=== PATIENT | male | born 2000 | race Two or more races ===

== ENCOUNTER 2019-03-20 18:46 | Emergency (ER) | payer OTHER ==
--- NOTE | 2019-03-20 20:07 | ER Document Report ---
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 He reports he was diagnosed in [place] when he was home on leave. They placed him on colchicine and ibuprofen. When he returned to [place] he quit taking ibuprofen. His medical told him to take naproxen. He is not taking colchicine anymore. He reports he had some chest pain this morning he also reports he has some abdominal pain that comes and goes denies fever vomiting diarrhea. He was worried that maybe he developed an ulcer. Denies black stools. I have greeted and performed a rapid initial assessment of this patient. A comprehensive ED assessment and evaluation of the patient, analysis of test results and completion of the medical decision making process will be conducted by additional ED providers. - Related Data Allergies/Adverse Reactions: No Known Allergies Allergy (Unverified 03/20/19 20:00) Physical Exam - Vital signs Vitals: Temp Pulse Resp BP Pulse Ox 98.2 F 63 16 120/80 100 03/20/19 19:22 03/20/19 19:22 03/20/19 19:22 03/20/19 19:22 03/20/19 19:22 Course - Vital Signs Vital signs: Temp Pulse Resp BP Pulse Ox 98.2 F 63 16 120/80 100 03/20/19 19:22 03/20/19 19:22 03/20/19 19:22 03/20/19 19:22 03/20/19 19:22
--- NOTE | 2019-03-20 20:36 | RADIOLOGY REPORT (SQ) ---
EXAM DESCRIPTION: XR CHEST 2 VIEWS COMPLETED DATE/TME: 03/20/2019 20:05 CLINICAL HISTORY: 18 years, Male, cp hx pericarditis COMPARISON: None. NUMBER OF VIEWS: Two TECHNIQUE: Frontal and lateral radiograph of the chest were acquired LIMITATIONS: None. FINDINGS: Cardiac and mediastinal contours are normal. Lungs are clear. No pleural effusion or pneumothorax. IMPRESSION: No acute disease. copyright 2010 [employer]- All Rights Reserved
[2019-03-20 21:12] LABS: ABSOLUTE BASOPHILS # (AUTO) 0.1 10^3/uL (0.0-0.2); ABSOLUTE EOSINOPHILS # (AUTO) 0.1 10^3/uL (0.0-0.6); ABSOLUTE LYMPHOCYTES (AUTO) 2.9 10^3/uL (0.5-4.7); ABSOLUTE MONOCYTES (AUTO) 0.7 10^3/uL (0.1-1.4); ABSOLUTE NEUT (AUTO) 3.5 10^3/uL (1.7-8.2); BASOPHILS % (AUTO) 0.9 % (0-2); EOSINOPHILS % (AUTO) 1.7 % (0-6); HEMOGLOBIN 14.9 g/dL (13.5-17.0); LYMPHOCYTES % (AUTO) 39.8 % (13-45); MEAN CORPUSCULAR HEMOGLOBIN 27.4 pg (27.0-33.4); MEAN CORPUSCULAR HGB CONC 33.8 g/dL (32.0-36.0); MEAN CORPUSCULAR VOLUME 81 fl (80-97); MONOCYTES % (AUTO) 9.6 % (3-13); PLATELET COUNT 277 10^3/uL (150-450); RED BLOOD COUNT 5.42 10^6/uL (4.35-5.55); RED CELL DISTRIBUTION WIDTH 12.4 % (11.5-14.0); TOTAL CELLS COUNTED % (AUTO) 100 %; WHITE BLOOD COUNT 7.3 10^3/uL (4.0-10.5)
[2019-03-20 21:22] LABS: APPEARANCE,URINE CLEAR; BILIRUBIN,URINE NEGATIVE (NEGATIVE); COLOR,URINE YELLOW; GLUCOSE, URINE NEGATIVE (NEGATIVE); KETONES,URINE 20 mg/dL (NEGATIVE); LEUKOCYTE ESTERASE,URINE NEGATIVE (NEGATIVE); NITRITE,URINE NEGATIVE (NEGATIVE); PROTEIN,URINE 30 mg/dL (NEGATIVE); URINE SPECIFIC GRAVITY 1.034
[2019-03-20 21:31] LABS: ALBUMIN 4.7 g/dL (3.7-5.6); ALKALINE PHOSPHATASE 79 U/L (65-260); ANION GAP 11 (5-19); ASPARTATE AMINO TRANSFERASE 132 U/L (10-45); BILIRUBIN,DIRECT 0.2 mg/dL (0.0-0.4); BILIRUBIN,TOTAL 0.7 mg/dL (0.2-1.3); BLOOD UREA NITROGEN 26 mg/dL (7-20); CALCIUM 9.8 mg/dL (8.4-10.2); CARBON DIOXIDE 28 mmol/L (22-30); CHLORIDE 100 mmol/L (98-107); GLUCOSE 94 mg/dL (75-110); POTASSIUM 4.4 mmol/L (3.6-5.0); TOTAL PROTEIN 8.3 g/dL (6.3-8.2)
--- NOTE | 2019-03-20 23:30 | EKG REPORT ---
SEVERITY:- OTHERWISE NORMAL ECG - SINUS ARRHYTHMIA, RATE 53-75 : Confirmed by: Judy Galvez MD 20-Mar-2019 23:29:59
[2019-03-21] MEDS ORDERED: SUCRALFATE 1 GM TABLET PO ONE (00:29)
--- NOTE | 2019-03-21 00:38 | ER Document Report ---
ED GI/ - General Chief Complaint: Abdominal Pain Stated Complaint: ABDOMINAL PAIN, HARD TO BREATHE Time Seen by Provider: 03/20/19 19:59 Mode of Arrival: Ambulatory Information source: Patient Notes: 18-year-old male presented to ED for complaint of epigastric abdominal pain. He states he was diagnosed with pericarditis in February. He states he was diagnosed while in [place] go home on leave. He states that for a month colchicine and ibuprofen and when he returned to [place] he could take any of ibuprofen and placed him on naproxen. He states he does not take the colchicine anymore due to the nausea and vomiting and diarrhea. He states he has been having some abdominal pain in the upper abdomen with no nausea vomiting diarrhea or fever. He is worried that he might be developing an ulcer from the medication. He states he has not had any black stools. He is alert oriented respirations regular nonlabored speaking in full sentences. He states he has not been taking any kind of medication for his stomach while taking the anti- inflammatories and colchicine. TRAVEL OUTSIDE OF THE [place] IN LAST 30 DAYS: No - HPI Patient complains to provider of: Abdominal pain Onset: Last week Timing/Duration: Intermittent Quality of pain: Burning Severity at maximum: Mild Severity in ED: None Pain Level: Denies Associated symptoms: Other - Epigastric pain Exacerbated by: Other - Naproxen Relieved by: Denies Similar symptoms previously: Yes Recently seen / treated by doctor: Yes - Related Data Allergies/Adverse Reactions: No Known Allergies Allergy (Unverified 03/20/19 20:00) Home Medications: naproxen Past Medical History - General Information source: Patient - Social History Smoking Status: Never Smoker Chew tobacco use (# tins/day): No Frequency of alcohol use: Occasional Drug Abuse: None, Other - He states he was using marijuana before he came into the in January not since then. Occupation: Active duty Lives with: Alone Family History: Reviewed & Not Pertinent Patient has suicidal ideation: No Patient has homicidal ideation: No - Past Medical History Cardiac Medical History: Reports: Other - Pericarditis Pulmonary Medical History: Reports: None EENT Medical History: Reports: None Neurological Medical History: Reports: None Endocrine Medical History: Reports: None Renal/ Medical History: Reports: None Malignancy Medical History: Reports None GI Medical History: Reports: None Musculoskeletal Medical History: Reports None Skin Medical History: Reports None Psychiatric Medical History: Reports: None Traumatic Medical History: Reports: None Infectious Medical History: Reports: None Surgical Hx: Negative Past Surgical History: Reports: None - Immunizations Immunizations up to date: Yes Hx Diphtheria, Pertussis, Tetanus Vaccination: Yes Review of Systems - Review of Systems Constitutional: No symptoms reported EENT: No symptoms reported Cardiovascular: No symptoms reported Respiratory: No symptoms reported Gastrointestinal: Abdominal pain - Epigastric pain Genitourinary: No symptoms reported Male Genitourinary: No symptoms reported Musculoskeletal: No symptoms reported Skin: No symptoms reported Hematologic/Lymphatic: No symptoms reported Neurological/Psychological: No symptoms reported -: Yes All other systems reviewed and negative Physical Exam - Vital signs Vitals: Temp Pulse Resp BP Pulse Ox 98.2 F 63 16 120/80 100 03/20/19 19:22 03/20/19 19:22 03/20/19 19:22 03/20/19 19:22 03/20/19 19:22 Interpretation: Normal - General General appearance: Appears well, Alert - HEENT Head: Normocephalic, Atraumatic Eyes: Normal Pupils: PERRL - Respiratory Respiratory status: No respiratory distress Chest status: Nontender Breath sounds: Normal Chest palpation: Normal - Cardiovascular Rhythm: Regular Heart sounds: Normal auscultation Murmur: No - Abdominal Inspection: Normal Distension: No distension Bowel sounds: Normal Tenderness: Tender - Minimal tenderness epigastric Organomegaly: No organomegaly - Back Back: Normal, Nontender - Extremities General upper extremity: Normal inspection, Nontender, Normal color, Normal ROM, Normal temperature General lower extremity: Normal inspection, Nontender, Normal color, Normal ROM, Normal temperature, Normal weight bearing. No: Barbara's sign - Neurological Neuro grossly intact: Yes Cognition: Normal Orientation: AAOx4 [place] Coma Scale Eye Opening: Spontaneous Kashif Coma Scale Verbal: Oriented [place] Coma Scale Motor: Obeys Commands Kashif Coma Scale Total: 15 Speech: Normal Motor strength normal: LUE, RUE, LLE, RLE Sensory: Normal - Psychological Associated symptoms: Normal affect, Normal mood - Skin Skin Temperature: Warm Skin Moisture: Dry Skin Color: Normal Course - Re-evaluation Re-evalutation: 03/21/19 03:07 Discussed chest x-ray labs and EKG with Dr. Everett and with patient. Drug screen was completed per Dr. Everett's suggestion. It was negative. Patient was treated with Carafate in the emergency room and discharged home with prescription for Pepcid and instructions to follow-up with his provider as he is active duty . Patient does have an echocardiogram scheduled next Sunday for his history of pericarditis. Patient was able to verbalize understanding and agreement with treatment plan patient was discharged home. - Vital Signs Vital signs: Temp Pulse Resp BP Pulse Ox 98.1 F 66 16 127/75 H 100 03/21/19 01:38 03/21/19 01:38 03/21/19 01:38 03/21/19 01:38 03/21/19 01:38 - Laboratory Result Diagrams: 03/20/19 21:02 03/20/19 21:02 Laboratory results interpreted by me: 03/20/19 03/20/19 21:02 21:02 BUN 26 H AST 132 H Total Protein 8.3 H Urine Protein 30 H Urine Ketones 20 H Urine Urobilinogen 2.0 H Urine Ascorbic Acid 40 H - Diagnostic Test Radiology reviewed: Image reviewed, Reports reviewed Discharge - Discharge Clinical Impression: Epigastric abdominal pain Condition: Stable Disposition: HOME, SELF-CARE Additional Instructions: ABDOMINAL PAIN: There are many causes of abdominal pain. Pain can mean a serious problem requiring surgery (such as appendicitis). It can also be an innocent problem that goes away on its own (such as a viral infection). Often, time must pass to determine the cause of pain. The physician does not feel that hospitalization is necessary, at present. Things may change within the next 24 hours. Call the doctor or come back for re- examination if any problems occur, such as: (1) Pain that becomes more severe, steady, or becomes concentrated in one specific area. Also, pain that is more severe with movement or coughing. (2) Vomiting that persists or becomes more frequent. (3) Blood in the vomitus, urine, or bowel movements. Blood in the stool may have a tarry or black appearance. (4) Shaking chills or fever greater than 100 degrees F. (5) The abdomen becomes more distended or swollen. (6) Bowel movements cease. (7) Failure to improve as expected. NORMAL EXAM AND WORKUP: At this time, your examination and workup show no significant abnormality. No significant abnormal physical findings are noted. All laboratory, EKG, and imaging (x-ray, CT scans, ultrasound) studies that were ordered show no significant abnormality. Although your examination and all studies that were ordered showed no significant abnormal finding, there are no examinations and no studies that are 100% accurate. There is always the possibility that some abnormality could exist and not be detected with physical examination or within the limits and capabilities of laboratory and other studies. You should return or follow up as you were instructed on your visit today for further evaluation if your symptoms do not resolve. ANTINAUSEA MEDICATION: You have been given a medication to suppress nausea and vomiting. This type of medication can be given as a shot, pill, or suppository. It will usually last for many hours. Pills and shots usually last six to eight hours, suppositories last about 12 hours. For the typical illness, only one or two doses of the medication may be necessary. Mild lightheadedness may occur. This type of medicine can cause drowsiness. Do not drive or operate dangerous machinery while under its influence. Do not mix with alcohol. See your doctor at once if you have muscle spasms or tightness, or uncontrollable motions (particularly of the neck, mouth, or jaw). Persistent vomiting or severe lightheadedness should also be evaluated by the physician. FOLLOW-UP CARE: If you have been referred to a physician for follow-up care, call the physici ans office for an appointment as you were instructed or within the next two days. If you experience worsening or a significant change in your symptoms, notify the physician immediately or return to the Emergency Department at any time for re-evaluation. Prescriptions: Famotidine [Pepcid 20 mg Tablet] 20 mg PO DAILY #12 tablet
[2019-03-21 01:12] LABS: URINE AMPHETAMINES SCREEN NEGATIVE; URINE BARBITURATES SCREEN NEGATIVE; URINE BENZODIAZEPINES SCREEN NEGATIVE; URINE COCAINE SCREEN NEGATIVE; URINE MARIJUANA (THC) SCREEN NEGATIVE; URINE METHADONE SCREEN NEGATIVE; URINE PHENCYCLIDINE SCREEN NEGATIVE
[2019-03-21 01:39] VITALS: BP 127/75
== END 2019-03-21 01:39 | disposition home or self-care (01) ==
LOC: ER 18:46
DX: R10.13 Epigastric pain (principal); R10.816 Epigastric abdominal tenderness; I31.9 Disease of pericardium, unspecified
CPT/HCPCS: 36415; 71046; 80053; 80307; 81001; 85025; 93005; 93010; 99284

== ENCOUNTER 2019-05-10 11:03 | Emergency (ER) | payer OTHER ==
[2019-05-10] MEDS ORDERED: ASPIRIN 81 MG TABLET, CHEWABLE PO ONE (11:18)
--- NOTE | 2019-05-10 11:18 | ER Document Report ---
ED Medical Screen (RME) - General Chief Complaint: Chest Pain Stated Complaint: CHEST PAIN Time Seen by Provider: 05/10/19 11:11 Mode of Arrival: Ambulatory Information source: Patient Notes: 18-year-old male presented to ED for complaint of chest pain. He states in April he saw child development specialist for chest pain they diagnosed him with mild mitral valve regurgitation and told him he would need to be reassessed in 5 years if he did not have any complications. The only other medical history he has is a shoulder dislocation on the right. He has not had any surgeries. He does not smoke he occasionally drinks no drugs and he is active duty Marine. Patient is alert oriented respirations regular nonlabored speaking in full sentences. He states his pain is a 2 or 3 and achy. He says he does go to the gym daily and lift heavy weights regularly I have greeted and performed a rapid initial assessment of this patient. A comprehensive ED assessment and evaluation of the patient, analysis of test results and completion of medical decision making process will be conducted by an additional ED providers. TRAVEL OUTSIDE OF THE [place] IN LAST 30 DAYS: No - Related Data Allergies/Adverse Reactions: No Known Allergies Allergy (Unverified 03/20/19 20:00) Past Medical History - Immunizations Immunizations up to date: Yes Hx Diphtheria, Pertussis, Tetanus Vaccination: Yes Physical Exam - Vital signs Vitals: Temp Pulse Resp BP Pulse Ox 98.4 F 63 14 124/85 99 05/10/19 11:15 05/10/19 11:15 05/10/19 11:15 05/10/19 11:15 05/10/19 11:15 Course - Vital Signs Vital signs: Temp Pulse Resp BP Pulse Ox 98.4 F 63 14 124/85 99 05/10/19 11:15 05/10/19 11:15 05/10/19 11:15 05/10/19 11:15 05/10/19 11:15
[2019-05-10 11:49] LABS: ABSOLUTE EOSINOPHILS # (AUTO) 0.1 10^3/uL (0.0-0.6); ABSOLUTE LYMPHOCYTES (AUTO) 1.8 10^3/uL (0.5-4.7); ABSOLUTE MONOCYTES (AUTO) 0.4 10^3/uL (0.1-1.4); ABSOLUTE NEUT (AUTO) 1.6 10^3/uL (1.7-8.2); BASOPHILS % (AUTO) 1.2 % (0-2); EOSINOPHILS % (AUTO) 2.2 % (0-6); HEMATOCRIT 42.7 % (37.9-51.0); HEMOGLOBIN 14.6 g/dL (13.5-17.0); LYMPHOCYTES % (AUTO) 45.2 % (13-45); MEAN CORPUSCULAR HEMOGLOBIN 27.8 pg (27.0-33.4); MEAN CORPUSCULAR HGB CONC 34.2 g/dL (32.0-36.0); MEAN CORPUSCULAR VOLUME 81 fl (80-97); PLATELET COUNT 246 10^3/uL (150-450); RED BLOOD COUNT 5.27 10^6/uL (4.35-5.55); RED CELL DISTRIBUTION WIDTH 12.8 % (11.5-14.0); SEGMENTED NEUTROPHILS % (AUTO) 40.4 % (42-78); TOTAL CELLS COUNTED % (AUTO) 100 %
--- NOTE | 2019-05-10 11:51 | RADIOLOGY REPORT (SQ) ---
EXAM DESCRIPTION: CHEST 2 VIEWS COMPLETED DATE/TIME: 05/10/2019 11:42 am REASON FOR STUDY: Chest pain history of mitral valve prolapse COMPARISON: 03/20/2019 EXAM PARAMETERS: NUMBER OF VIEWS: two views TECHNIQUE: Digital Frontal and Lateral radiographic views of the chest acquired. RADIATION DOSE: NA LIMITATIONS: none FINDINGS: LUNGS AND PLEURA: No opacities, masses or pneumothorax. No pleural effusion. MEDIASTINUM AND HILAR STRUCTURES: No masses or contour abnormalities. HEART AND VASCULAR STRUCTURES: Heart normal size. No evidence for failure. BONES: No acute findings. HARDWARE: None in the chest. OTHER: No other significant finding. IMPRESSION: NO ACUTE RADIOGRAPHIC FINDING IN THE CHEST. TECHNICAL DOCUMENTATION: JOB ID: [id number] 2010 [employer]- All Rights Reserved Reading location - IP/workstation name: [email or web address]
[2019-05-10 12:03] VITALS: BP 132/73
[2019-05-10 12:10] LABS: ALBUMIN 4.2 g/dL (3.7-5.6); ALKALINE PHOSPHATASE 62 U/L (65-260); ANION GAP 7 (5-19); ASPARTATE AMINO TRANSFERASE 41 U/L (10-45); BILIRUBIN,TOTAL 0.7 mg/dL (0.2-1.3); BLOOD UREA NITROGEN 14 mg/dL (7-20); CALCIUM 9.2 mg/dL (8.4-10.2); CARBON DIOXIDE 29 mmol/L (22-30); CHLORIDE 104 mmol/L (98-107); GLUCOSE 89 mg/dL (75-110); POTASSIUM 4.5 mmol/L (3.6-5.0); TOTAL PROTEIN 7.4 g/dL (6.3-8.2)
[2019-05-10] MEDS ORDERED: CYCLOBENZAPRINE HCL 10 MG TABLET PO ONE (13:08)
--- NOTE | 2019-05-10 13:13 | ER Document Report ---
ED Cardiac - General Chief Complaint: Chest Pain Stated Complaint: CHEST PAIN Time Seen by Provider: 05/10/19 12:45 Primary Care Provider: [facility] [Provider Group] - 05/12/19 Mode of Arrival: Ambulatory Notes: She presents complaining of left-sided chest pain that started since yesterday. Patient states that the pain is an achy pain. Patient does report going to the gym daily and working out. Patient denies any injury. Patient denies any cough cold symptoms nausea or vomiting. States that he did see a sand system operator last month and had an echocardiogram after previously being diagnosed with pericarditis earlier in the year. Patient denies any history of acid reflux or anxiety. TRAVEL OUTSIDE OF THE [place] IN LAST 30 DAYS: No - Related Data Allergies/Adverse Reactions: No Known Allergies Allergy (Verified 05/10/19 11:16) Past Medical History - General Information source: Patient - Social History Smoking Status: Never Smoker Frequency of alcohol use: Occasional Drug Abuse: None Family History: Reviewed & Not Pertinent Patient has suicidal ideation: No Patient has homicidal ideation: No - Immunizations Immunizations up to date: Yes Hx Diphtheria, Pertussis, Tetanus Vaccination: Yes Physical Exam - Vital signs Vitals: Temp Pulse Resp BP Pulse Ox 98.4 F 63 14 124/85 99 05/10/19 11:15 05/10/19 11:15 05/10/19 11:15 05/10/19 11:15 05/10/19 11:15 - General General appearance: Appears well, Alert In distress: None - HEENT Head: Normocephalic, Atraumatic Eyes: Normal Conjunctiva: Normal Nasal: Normal Mouth/Lips: Normal Mucous membranes: Normal Neck: Normal, Supple. No: Lymphadenopathy - Respiratory Respiratory status: No respiratory distress Chest status: Tender Breath sounds: Normal Chest palpation: Tender - Cardiovascular Rhythm: Regular. No: Tachycardia, Bradycardia Heart sounds: S1 appreciated, S2 appreciated - Abdominal Inspection: Normal Distension: No distension Bowel sounds: Normal Tenderness: Nontender Organomegaly: No organomegaly - Back Back: Normal, Nontender - Extremities General upper extremity: Normal inspection, Normal strength General lower extremity: Normal inspection, Normal strength - Neurological Neuro grossly intact: Yes Cognition: Normal Orientation: AAOx4 Kashif Coma Scale Eye Opening: Spontaneous [place] Coma Scale Verbal: Oriented Kashif Coma Scale Motor: Obeys Commands [place] Coma Scale Total: 15 - Psychological Associated symptoms: Normal affect, Normal mood - Skin Skin Temperature: Warm Skin Moisture: Dry Skin Color: Normal Course - Re-evaluation Re-evalutation: 05/10/19 13:07 Presentation of chest pain in an otherwise well appearing patient. Low clinical suspicion for ACS given clinical history, exam, EKG without ST depressions, and negative initial troponin. HEART score less than or equal to 3. PE also seems unlikely given clinical history, absence of tachycardia or dyspnea. Patient is PERC criteria negative. CXR without evidence of pneumothorax or pneumonia. No widened mediastinum. Chest pain in a patient without evidence of cardiac or other serious etiology on workup today. I discussed with patient that, based on their age, risk factors and emergency department testing today, the likelihood that their symptoms are related to a heart attack is very low. The patient demonstrates decision making capacity and has verbalized an understanding of these risks to me. Based on this, the patient has chosen to follow-up as an outpatient. Usual chest pain return precautions reviewed. The patient states understanding and agreement with this plan. EKG reviewed with Dr. Hastings 05/10/19 15:52 - Vital Signs Vital signs: Temp Pulse Resp BP Pulse Ox 98.4 F 63 16 132/73 H 99 05/10/19 11:15 05/10/19 11:15 05/10/19 11:56 05/10/19 11:56 05/10/19 11:56 - Laboratory Result Diagrams: 05/10/19 11:25 05/10/19 11:25 Laboratory results interpreted by me: 05/10/19 05/10/19 11:25 11:25 Lymph % (Auto) 45.2 H Absolute Neuts (auto) 1.6 L Seg Neutrophils % 40.4 L Alkaline Phosphatase 62 L 05/10/19 13:07 Labs- Entire Visit 05/10/19 05/10/19 05/10/19 11:25 11:25 11:25 WBC 4.0 RBC 5.27 Hgb 14.6 Hct 42.7 MCV 81 MCH 27.8 MCHC 34.2 RDW 12.8 Plt Count 246 Lymph % (Auto) 45.2 H Weld % (Auto) 11.0 Eos % (Auto) 2.2 Baso % (Auto) 1.2 Absolute Neuts (auto) 1.6 L Absolute Lymphs (auto) 1.8 Absolute Monos (auto) 0.4 Absolute Eos (auto) 0.1 Absolute Basos (auto) 0.0 Seg Neutrophils % 40.4 L Sodium 139.9 Potassium 4.5 Chloride 104 Carbon Dioxide 29 Anion Gap 7 BUN 14 Creatinine 0.90 Est GFR ( Amer) > 60 Est GFR (MDRD) Non-Af > 60 Glucose 89 Calcium 9.2 Total Bilirubin 0.7 Direct Bilirubin 0.0 Neonat Total Bilirubin Not Reportable Neonat Direct Bilirubin Not Reportable Neonat Indirect Bili Not Reportable AST 41 ALT 21 Alkaline Phosphatase 62 L Troponin I < 0.012 Total Protein 7.4 Albumin 4.2 - Diagnostic Test Radiology reviewed: Reports reviewed - EKG Interpretation by Me EKG shows normal: Sinus rhythm Rhythm: Arrthymia When compared to previous EKG there are: No significant change Additional EKG results interpreted by me: 05/10/19 13:08 Patient with repolarization pattern on EKG, QTc 325 Discharge - Discharge Clinical Impression: Chest pain Qualifiers: Chest pain type: unspecified Qualified Code(s): R07.9 - Chest pain, unspecified Condition: Stable Disposition: HOME, SELF-CARE Instructions: Chest Wall Pain ([facility]), Chest Pain of Unclear Cause ([facility]) Additional Instructions: You were seen today for chest pain. The exact cause of your pain is unclear. However, based on your cardiac enzyme testing, chest x-ray, and EKG it does not appear that it is from an immediately life-threatening cause at this time. Al though your testing here is normal is critical that you follow-up with your primary care physician for continued evaluation of this chest pain and possible stress testing. I recommended you see your physician within the next 24-48 hours for a recheck. Please return to emergency department immediately if you have worsening of your chest pain, shortness of breath, vomiting, become unable to exert yourself due to pain or difficulty breathing, you pass out, or have any pain that radiates into your arms, jaw, or back. Please also return if you have any additional symptoms that are concerning to you. Prescriptions: Naproxen [Naprosyn 250 Nmg Tablet] 1 tab PO BID #14 tablet Forms: Release from [facility] Referrals: [facility] [Provider Group] - 05/12/19
--- NOTE | 2019-05-10 14:44 | EKG REPORT ---
SEVERITY:- OTHERWISE NORMAL ECG - SINUS ARRHYTHMIA, RATE 53-[address], PROBABLE NORMAL EARLY REPOL PATTERN : Confirmed by: William Garcia MD 10-May-2019 14:44:32
== END 2019-05-10 13:31 | disposition home or self-care (01) ==
LOC: ER 11:03
DX: R07.9 Chest pain, unspecified (principal); I49.9 Cardiac arrhythmia, unspecified; Z86.79 Personal history of other diseases of the circulatory system
CPT/HCPCS: 36415; 71046; 80053; 84484; 85025; 93005; 93010; 99285

== ENCOUNTER 2020-02-14 10:29 | Emergency (ER) | payer OTHER ==
[2020-02-14 13:01] VITALS: BP 127/81
--- NOTE | 2020-02-16 08:41 | ER Document Report ---
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 He had a negative Covid test a few days before the onset of his symptoms. There has not been a cough. There is no nausea or vomiting. There is no known fever. TRAVEL OUTSIDE OF THE [place] IN LAST 30 DAYS: No - Related Data Allergies/Adverse Reactions: No Known Allergies Allergy (Verified 02/14/20 10:49) Past Medical History - General Information source: Patient - Social History Smoking Status: Never Smoker Cigarette use (# per day): No Chew tobacco use (# tins/day): No Smoking Education Provided: No Frequency of alcohol use: None Occupation: [employer] [place] Family History: Reviewed & Not Pertinent - Medical History Medical History: Negative Surgical Hx: Negative - Immunizations Immunizations up to date: Yes Hx Diphtheria, Pertussis, Tetanus Vaccination: Yes Review of Systems - Review of Systems Constitutional: Chills EENT: See HPI, Ear pain Cardiovascular: No symptoms reported Respiratory: No symptoms reported Gastrointestinal: No symptoms reported Genitourinary: No symptoms reported Musculoskeletal: No symptoms reported Skin: No symptoms reported Hematologic/Lymphatic: No symptoms reported Neurological/Psychological: No symptoms reported Physical Exam - Vital signs Vitals: Temp Pulse Resp BP Pulse Ox 98.5 F 60 16 127/81 H 100 02/14/20 13:00 02/14/20 13:00 02/14/20 13:00 02/14/20 13:00 02/14/20 13:00 - General General appearance: Appears well, Alert In distress: None - HEENT Head: Normocephalic, Atraumatic, Tenderness - There is tenderness to palpate the frontal and temporal scalp bilaterally. Eyes: Normal Pupils: PERRL External canal: Normal Tympanic membrane: Other - Both TMs are a little dull, red. The right appears slightly retracted, the left appears to slightly bulged. Nasal: Normal Pharynx: Normal. No: Erythema, Exudate, Uvular edema Neck: Anterior cervical chain - Tenderness to palpate along the anterior cervical chain starting at the angle of the mandible going down on both sides. No discernible enlarged lymph nodes., Supple, Other - There is tenderness to palpate the posterior cervical muscles going up toward the base of the skull. - Respiratory Respiratory status: No respiratory distress Breath sounds: Normal - Cardiovascular Rhythm: Regular Heart sounds: Normal auscultation Murmur: No - Abdominal Inspection: Normal - Back Back: Normal - Extremities General upper extremity: Normal inspection General lower extremity: Normal inspection - Neurological Neuro grossly intact: Yes - Psychological Associated symptoms: Normal affect, Normal mood - Skin Skin Temperature: Warm Skin Moisture: Dry Skin Color: Normal Course - Re-evaluation Re-evalutation: 02/14/20 12:35 The patient was evaluated during the global COVID-19 pandemic and that diagnosis was suspected/considered upon their initial presentation. Their evaluation, treatment and testing was consistent with current guidelines for patients who present with complaints or symptoms that may be related to COVID-19. - Vital Signs Vital signs: Temp Pulse Resp BP Pulse Ox 98.5 F 60 16 127/81 H 100 02/14/20 13:00 02/14/20 13:00 02/14/20 13:00 02/14/20 13:00 02/14/20 13:00 - Laboratory Results Critical Laboratory Results Reviewed: No Critical Results - Radiology Results Critical Radiology Results Reviewed: No Critical Results Discharge - Discharge Clinical Impression: Viral illness Left otitis media Qualifiers: Otitis media type: unspecified Qualified Code(s): H66.92 - Otitis media, unspecified, left ear Tension type headache Qualifiers: Headache chronicity pattern: unspecified pattern Intractability: not intractable Qualified Code(s): G44.209 - Tension-type headache, unspecified, not intractable Condition: Stable Disposition: HOME, SELF-CARE Instructions: COVID-19 Guidance for Persons Under Investigation Additional Instructions: Otitis Media: You have a middle ear infection (otitis media). This is usually a complication of a cold or sore throat. The middle ear cavity becomes filled with infection. Pressure and stretching of the ear drum cause pain. Antibiotics are required. A 10 day course is usually prescribed. A decongestant may be recommended if you have a "runny nose." You may need anesthetic drops or other pain medication. A follow-up exam may be recommended to make sure the infection has completely cleared. If the ear begins to drain, it means the ear drum has ruptured. This will usually heal spontaneously. However, it means you should keep the ear dry until re-examined by a doctor. Call the physician or return for examination at once if there is severe headache, stiff neck, confusion, increasing fever, or dizziness. You should improve significantly within two days. If you're not better, call the doctor. Viral Syndrome: The physician has diagnosed a viral infection. Viruses not only cause "colds," but can cause many different symptoms including generalized aching, fever, headache, cough, diarrhea, nausea, vomiting, and fatigue. The treatment, for the most part, is simply relief of symptoms. This means that antibiotics are usually not given. Rest, fluids, pain medications and, occasionally, medication for the specific symptoms that are most bothersome will be prescribed. Use good handwashing to avoid passing the virus to others. Shared toys should be cleaned with disinfectant. Clean the toilets, sinks, and counter surfaces in bathrooms. Launder clothing in hot water. Contact the physician if you develop any new or unusual symptoms such as severe headache, stiff neck, high fever, chest pain, productive cough, or shortness of breath. You should be rechecked if you don't see marked improvement within seven to 10 days. Take medication as prescribed. The prednisone will help reduce inflammation and improve the middle ear drainage. Take [id number] Sudafed or other decongestant medication for a few days. Drink plenty of fluids get plenty of rest. Take Tylenol and ibuprofen for your tension type headache. Follow-up with your primary care provider if not improving. RETURN TO THE EMERGENCY ROOM IF ANY NEW OR WORSENING SYMPTOMS. Prescriptions: Amoxicillin Trihydrate [Amoxil 500 mg Capsule] 500 mg PO TID #30 cap Prednisone [Deltasone 10 mg Tablet] 10 mg PO ASDIR PRN #21 tablet PRN Reason: I personally performed the services described in the documentation, reviewed and edited the documentation which was dictated to the scribe in my presence, and it accurately records my words and actions.
== END 2020-02-14 13:00 | disposition home or self-care (01) ==
LOC: ER 10:29
DX: B34.9 Viral infection, unspecified (principal); H66.92 Otitis media, unspecified, left ear; G44.209 Tension-type headache, unspecified, not intractable; R68.83 Chills (without fever); Z20.828 Contact with and (suspected) exposure to other viral communicable diseases
CPT/HCPCS: 99283; 87635; C9803